=== PATIENT | female | born 1960 | race Caucasian/White ===

== ENCOUNTER 2019-12-21 19:05 | Emergency (ER) | payer BC, SELFPAY ==
[2019-12-21 19:06] VITALS: BP 152/92; PULSE 130; RESP 14; TEMP 36.6; O2SAT 98; BMI 32.7
--- NOTE | 2019-12-21 19:30 | RAD_ITS ---
STUDY: X-RAY - RIGHT WRIST REASON FOR EXAM: Female, 59 years old. Fall, pain in wrist. TECHNIQUE: 3 view(s) of the wrist were obtained. COMPARISON: None. FINDINGS: There is fracture across the distal radial metaphysis. There is mild impaction. There is dorsal angulation of the articular surface. There are no displaced fragments. No dislocation. Normal visualized distal ulna. Normal radiocarpal articulation. Normal distal radioulnar articulation. Normal carpal bones. Normal carpal articulations. Normal carpometacarpal articulation of the thumb. Normal second through fifth carpometacarpal articulations. Normal visualized metacarpal bones. There is diffuse soft tissue swelling. RAD/Wrist min 3 Views IMPRESSION: Mildly impacted mildly angulated fracture through the distal radial metaphysis. Electronically Signed: Aroldo Rodriguez MD at 20:24 EDT , Service support ,
--- NOTE | 2019-12-21 19:30 | RAD_ITS ---
STUDY: X-RAY - RIGHT RADIUS AND ULNA REASON FOR EXAM: Female, 59 years old. Fall, pain in wrist. TECHNIQUE: 2 view(s) of the forearm. COMPARISON: None. FINDINGS: There is fracture across the distal radial metaphysis with mild impaction. No significant displacement. No angulation. No dislocation. Normal visualized ulna. RAD/Forearm 2 Views IMPRESSION: Fracture of the distal radial metaphysis. No other abnormalities of the radius or ulna are seen. Electronically Signed: Aroldo Rodriguez MD at 20:22 EDT , Service support ,
--- NOTE | 2019-12-21 20:31 | ED.VISSUMM ---
- ER Visit Summary Date of Service: 12/21/19 Chief Complaint: Fall History of Present Illness: The patient is a [address] Fuentes. She reports that approximately 5:00 she tripped over a dog fence and injured her right wrist. She reports that she has a dull pain is 5-10 currently and at worst. Is worsened by movement. Is relieved by rest and ibuprofen. She denies any paresthesias distally. She denies any blow to the head or loss of consciousness. She not on anticoagulants. No neck, back, shoulder, wrist, or hip pain. Patient is left-hand dominant. Physical Examination: Vitals: Stable. Afebrile. Neck: No vertebral tenderness. Full ROM without difficulty. Cleared by NEXUS criteria. Back: No vertebral tenderness. General: A&O x 3. NAD. Cardiovascular exam: Regular rate and rhythm, no murmur, rub or gallop. Respiratory exam: Chest nontender. No crepitus. Clear to auscultation bilaterally. No wheezes or stridor. Abdominal exam: Soft, nontender, nondistended, normal bowel sounds. No pain in RUQ or LUQ specifically. No peritoneal signs. Extremity: Severe tenderness to palpation over the distal radius on the right. No pain with supination of her hand. She is neuro vas intact distal to this. Test Results: Clinical Impression(s) from Imaging Studies Forearm X-Ray 12/21/19 19:30 IMPRESSION: Fracture of the distal radial metaphysis. No other abnormalities of the radius or ulna are seen. Electronically Signed: Aroldo Rodriguez MD at 20:22 EDT , Service support , Wrist X-Ray 12/21/19 19:30 IMPRESSION: Mildly impacted mildly angulated fracture through the distal radial metaphysis. Electronically Signed: Aroldo Rodriguez MD at 20:24 EDT , Service support , Emergency Department Course and Treatment: Patient refused pain medications. She was placed in a volar splint. Treatment Plan: Patient lives in [place]. She will be discharged instructions to follow-up with Dr. German in 5 to 7 days. She does understand there is intra-articular extension of this fracture and she may require surgery. She given a prescription for Percocet and Colace for pain. Return to the emergency department for any worsening symptoms. Disposition: To home in improved and stable condition. Impression: 1 1. Fall. 2. Right distal radius fracture with intra-articular extension. 3. Ortho-Glass volar splint, fabricated. This note was generated with [employer] dictation software. It may contain incorrect words, spelling, and punctuation that were not noted in review of the chart prior to signing ED Disposition - Plan for ED Patient: Instructions: ED Fx Colles Wrist No Redu Requ Prescriptions: Docusate Sodium [Colace] 100 mg PO DAILY #20 capsule Oxycodone HCl/Acetaminophen [Percocet 5/325] 1 tablet PO Q6H PRN PRN 3 Days #12 tablet PRN Reason: Pain Referrals: Kareem German MD [STAFF PHYSICIAN] - 5-7 Days
== END 2019-12-21 20:53 | disposition home or self-care (01) ==
LOC: ED 19:38
PROVIDERS: Emergency Provider Emergency Medicine; PCP Family Medicine
DX: S52.571A Other intraarticular fracture of lower end of right radius, initial encounter for closed fracture (principal); W18.09XA Striking against other object with subsequent fall, initial encounter; Y93.9 Activity, unspecified; Y92.9 Unspecified place or not applicable
CPT/HCPCS: 29125; 73090; 73110